=== PATIENT | female | born 1995 | race African-American/Black ===

== ENCOUNTER 2020-12-26 18:13 | Emergency (ER) | payer SELFPAY ==
[~2020-12-26] VITALS: Ht 149.9 cm; Wt 45.4 kg
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
[2020-12-26 19:39] LABS: BILIRUBIN,URINE SMALL (NEG); CLARITY,URINE CLEAR; COLOR,URINE AMBER; NITRITE,URINE NEGATIVE (NEG); PROTEIN,URINE 30 mg/dL (NEG-TRACE)
[2020-12-26 19:53] LABS: BACTERIA,URINE FEW /HPF (0-FEW); RBC,URINE RARE /HPF (0-2)
[2020-12-26 19:55] LABS: BASO # 0.1 x10^3/uL (0.0-0.2); BASO % 1 % (0-3); EOS # 0.5 x10^3/uL (0.0-0.7); EOS % 7 % (0-3); HEMATOCRIT 40.3 % (36.0-47.0); HEMOGLOBIN 13.9 g/dL (12.0-15.5); LYMPH # 2.8 x10^3/uL (1.0-4.8); LYMPH % 38 % (24-48); MEAN CORPUSCULAR HEMOGLOBIN 32 pg (25-35); MEAN CORPUSCULAR HGB CONC 35 g/dL (31-37); MEAN CORPUSCULAR VOLUME 94 fL (79-100); MONO # 0.5 x10^3/uL (0.0-1.1); MONO % 7 % (0-9); NEUT # 3.5 x10^3/uL (1.8-7.7); NEUT % 47 % (31-73); PLATELET COUNT 295 x10^3/uL (140-400); RED BLOOD COUNT 4.31 x10^6/uL (3.50-5.40); WHITE BLOOD COUNT 7.4 x10^3/uL (4.0-11.0)
[2020-12-26] MEDS ORDERED: IV NORMAL SALINE 1000ML BAG 1,000 ML IV ONE (20:00)
[2020-12-26] MEDS ORDERED: FAMOTIDINE 20 MG/2 ML VIAL IVP ONE (20:00)
[2020-12-26] MEDS ORDERED: KETOROLAC 15 MG/ML VIAL. IVP ONE (20:00)
[2020-12-26] MEDS ORDERED: ONDANSETRON PF 4 MG/2 ML VIAL. IVP ONE (20:00)
[2020-12-26 20:04] LABS: CALCIUM 9.4 mg/dL (8.5-10.1); CREATININE 0.8 mg/dL (0.6-1.0); GFR 107.6; POTASSIUM 3.6 mmol/L (3.5-5.1)
[2020-12-26 20:08] LABS: ALBUMIN 4.4 g/dL (3.4-5.0); ALBUMIN/GLOBULIN RATIO 1.3 (1.0-1.7); MAGNESIUM 2.4 mg/dL (1.8-2.4); TOTAL BILIRUBIN 0.7 mg/dL (0.2-1.0); TOTAL PROTEIN 7.9 g/dL (6.4-8.2)
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
[2020-12-26] MEDS ORDERED: CONTRAST GIVEN. MC PRN (20:45)
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
[2020-12-26] MEDS ORDERED: IOHEXOL 300 MG/ML 100ML VIAL. IV ONE (21:00)
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
[2020-12-26] MEDS ORDERED: NAPR-695 PO (21:43)
[2020-12-26] MEDS ORDERED: ORPH100T PO (21:43)
[2020-12-26 22:10] VITALS: BP 110/68
== END 2020-12-26 22:10 | disposition home or self-care (01) ==
LOC: ER 18:13
DX: S32.038A Other fracture of third lumbar vertebra, initial encounter for closed fracture (principal); S90.31XA Contusion of right foot, initial encounter; S20.212A Contusion of left front wall of thorax, initial encounter; M54.2 Cervicalgia; Y08.89XA Assault by other specified means, initial encounter; Y93.89 Activity, other specified; Y92.89 Other specified places as the place of occurrence of the external cause; Y99.8 Other external cause status
CPT/HCPCS: 36415; 70450; 71260; 72125; 73630; 74177; 80053; 81001; 81025; 83690; 83735; 85025; 87086; 96361; 96374; 96375; 99285; J1885; J2405; J3490; J7030; Q9967